=== PATIENT | male | born 1980 | race Caucasian/White ===

== ENCOUNTER 2024-06-27 17:20 | Inpatient (IN) | payer BC ==
[2024-06-27] VITALS (10 sets, daily range): BP systolic 130–147; BP diastolic 65–88
[~2024-06-27] VITALS: Ht 182.9 cm; Wt 110.0 kg
[2024-06-27] MEDS ORDERED: HYDROmorphone HCL 2 MG/AMP IV ONE (17:35)
[2024-06-27 18:00] LABS: BASO% 0.1 % (0-3); EOS% 0.3 % (0-8); HEMATOCRIT 40.2 % (39.0-50.0); HEMOGLOBIN 13.3 g/dl (14.0-18.0); IMMATURE GRANULOCYTES 0.3 % (0.0-5.0); MEAN CORPUSCULAR HGB 29.1 pG CALC (26.0-32.0); MEAN CORPUSCULAR HGB CONC 33.1 g/dL CAL (32.0-36.0); MONO% 8.1 % (2-13); NEUT# 10.68 thou/uL (1.82-7.42); NEUT% 85.2 % (42-76); RED BLOOD COUNT 4.57 mill/uL (4.70-6.10); RED CELL DISTRI WIDTH 12.8 % (11.5-15.5)
[2024-06-27 18:10] LABS: ALBUMIN 3.7 g/dL (3.2-5.0); BILIRUBIN, TOTAL 1.6 mg/dL (0.2-1.3); POTASSIUM 3.7 mmol/l (3.5-5.1); TOTAL PROTEIN 6.8 g/dL (6.3-8.2)
--- NOTE | 2024-06-27 18:26 | NUR ---
PT MEDICATED PER EMAR FOR PAIN. PT EDUCATED ON NEED FOR URINE SAMPLE. URINAL PLACED AT BEDSIDE. CALL LIGHT IN REACH.
[2024-06-27] MEDS ORDERED: SODIUM CHLORIDE 0.9% 1,000 ML IV ONE (18:40)
[2024-06-27] MEDS ORDERED: ACETAMINOPHEN 1,000 MG/100 ML VIAL IV ONE (18:40)
--- NOTE | 2024-06-27 19:24 | NUR ---
TEMPERATURE REASSED. PATIENT MEETS CRITERIA FOR SEPSIS. HR 114, TEMP 101. WBC COUNT 12.5. X RAY EQUIPMENT MECHANIC NOTIFIED. BLOOD CULTURES ORDERED. ANTIBITOICS HUNG AT THIS TIME BUT NOT INFUSIONG. LAB NOTIFIED OF NEED FOR BLOOD CULTURES.
[2024-06-27] MEDS ORDERED: PIPERACILLIN Sodium-Tazobactam 4.5 GM in SODIUM CHLORIDE 0.9% 100 ML IV ONE (19:30)
--- NOTE | 2024-06-27 20:25 | NUR ---
OR TEAM AT BEDSIDE.
--- NOTE | 2024-06-27 20:30 | NUR ---
PATIENT TRASNPORTED TO OR AT THIS TIME.
[2024-06-27] MEDS ORDERED: LACTATED RINGER'S 1,000 ML IV ONE (20:37)
[2024-06-27] MEDS ORDERED: LIDOcaine HCl 1% (Local Anesth.) 20 ML VIAL ONE (20:43)
[2024-06-27] MEDS ORDERED: SODIUM CHLORIDE 0.9% 10 ML SYR ONE (20:43)
[2024-06-27] MEDS ORDERED: STERILE WATER FOR IRRIGATION 500 ML BTL IR ONE (20:43)
[2024-06-27] MEDS ORDERED: SODIUM CHLORIDE 1,000 ML BTL IR ONE (20:43)
[2024-06-27] MEDS ORDERED: FAMOTIDINE 10MG/ML 2ML SDV IV ONE (20:53)
[2024-06-27] MEDS ORDERED: SODIUM CHLORIDE 0.9% 1,000 ML IV PRN (21:35)
[2024-06-27] MEDS ORDERED: HYDROmorphone HCL 2 MG/AMP IV PRN (21:35)
--- NOTE | 2024-06-27 23:15 | NUR ---
PT ARRIVED TO MED-SURG FLOOR AROUND 2205 HRS VIA STRETCHER ACCOMPANIED BY HIS FAMILY MEMBERS. ASSESSMENT AND ADMISSION COMPLETED AT THIS TIME. PT STATES HE CAME IN TO ER DUE TO UNRELIEVED ABDOMINAL PAIN DURING THE LAST 2 DAYS PT ALSO STATES HE WAS TAKING TYLENOL BUT THE PAIN IT DID NOT GO AWAY. PT WAS LET KNOWN THAT WE NEED TO MEASURE HIS URINE AND HE WILL BE NPO FOR THE REST OF THE NIGHT. PT DENIES ANY PAIN AT THIS TIME HE JUST SAID THAT HE FEELS THAT HIS ANDOMEN IS BLOATED. RESPS ARE EVEN AND UNLABORED. NO DSITRESS NOTED. ABDOMEN IS DISTENDED AND SOFT WITH ACTIVE BOWEL SOUNDS. DENIES ANY TENDERNESS. STRONG PERIPHERAL PULSES TO TOUCH. SKIN IS WARM, DRY AND INTACT. ORIENTED TO ROOM, CALL LIGHT AND SURROUNDS. INSTRUCTED TO CALL FOR ASSISTACE NEEDED. CALL LIGHT IS WITHIN REACH AND SAFETY PRECAUTIONS IN PLACE.
[2024-06-28] VITALS (7 sets, daily range): BP systolic 110–163; BP diastolic 59–102
[2024-06-28] MEDS ORDERED: KETOROLAC TROMETHAMINE 15 MG/ML SDV IV SCH
--- NOTE | 2024-06-28 | NUR ---
PATEINT ADMITTED FOR DIVERTICULITIS WITH PERFORATION OF THE INTESTINE. PATIENT IS ALERT AND ORIENTEDX3 UPON ARRIVAL TO THE UNIT AND STATES THAT HIS PAIN IS UNDER CONTROL AT TH AT TIME. PATIENT IS NPO. DENIES ANY NAUSEA AT THIS TIME. STATES THAT HIS LAST BM WAS FRIDAY MORNING AND WAS NORMAL. DENIES ANY DIFFICUTY WITH URINATION AND URINE SPEC OBTAINED AND SENT TO LAB. URINE WAS ORANGE-PATIENT DID TAKE AZO AT HOME BEFORE COMING TO THE ER-STATES THAT MAYBE HE HAD A UTI. IV SITE TO LAC INTACT WITH IVF PATENT AND INFUSING AT 150CC/HR. SITE IS HEALTHY AT THIS TIME. FAMILY AT BEDSIDE. ORIENTED TO ROOM AND SURROUNDINGS. INSTRUCTED ON USE OF NURSE CALL LIGHT SYSTEM AND TV REMOTE. TEDS WERE PLACED BLE. CALL LIGHT IN REACH. WILL CONT TO MONITOR.
[2024-06-28 00:57] LABS: URINE BLOOD DIPSTICK Trace-lysed (NEGATIVE); URINE COLOR Orange; URINE GLUCOSE - DIPSTICK 100 mg/dL (NEGATIVE); URINE KETONE 15 mg/dL (NEGATIVE); URINE LEUK ESTERASE Negative (NEGATIVE); URINE NITRITE - DIPSTICK Positive (Negative); URINE PH 5.5 (4.5-8.0); URINE PROTEIN - DIPSTICK 100 mg/dL (NEG-TRACE); URINE SPECIFIC GRAVITY 1.015
[2024-06-28 00:58] LABS: URINE WBC 0-2 WBC/hpf (0-5)
[2024-06-28 00:59] LABS: URINE BACTERIA FEW hpf; URINE EPITHELIAL CELLS FEW EPI/hpf (0-FEW)
--- NOTE | 2024-06-28 03:06 | NUR ---
PT REQUESTED PAIN MEDICATION AT THIS TIME. DILAUDID WAS PULLED OUT OF THE PYXIS BUT WHEN I PULLED OUT THE MEDICATION I PULLED THE 2 GM OUT BY ACCIDENT IN THE WASTE CONTAINER.
--- NOTE | 2024-06-28 04:02 | NUR ---
PT RESTING IN SUPINE POSITION STATES THAT HE DOES NOT HAVE ANY PAIN RIGHT NOW. IVF NS PATENT AND INFUSING VIA RAC AT 150 CC ORDERED. CALL LIGHT IS WITHIN REACH AND SAFETY PRECAUTIONS IN PLACE.
[2024-06-28 05:36] LABS: BASO% 0.2 % (0-3); HEMATOCRIT 35.6 % (39.0-50.0); HEMOGLOBIN 12.1 g/dl (14.0-18.0); IMMATURE GRANULOCYTES 0.2 % (0.0-5.0); LYMPH% 6.7 % (15-41); MEAN CELL VOLUME 87.7 fL CALC (80.0-100.0); MEAN CORPUSCULAR HGB 29.8 pG CALC (26.0-32.0); MONO% 9.8 % (2-13); NEUT# 8.64 thou/uL (1.82-7.42); NEUT% 82.1 % (42-76); RED BLOOD COUNT 4.06 mill/uL (4.70-6.10)
[2024-06-28 05:38] LABS: ALBUMIN 3.1 g/dL (3.2-5.0); BILIRUBIN, TOTAL 1.6 mg/dL (0.2-1.3); CREATININE 0.9 mg/dL (0.7-1.3); POTASSIUM 3.6 mmol/l (3.5-5.1); TOTAL PROTEIN 5.9 g/dL (6.3-8.2)
[2024-06-28] MEDS ORDERED: PIPERACILLIN Sodium-Tazobactam 3.375 GM in SODIUM CHLORIDE 0.9% 100 ML IV SCH ×2 (06:00→12:00)
[2024-06-28] MEDS ORDERED: Pantoprazole Sodium 40 MG VIAL (Protonix) IV SCH (09:00)
--- NOTE | 2024-06-28 09:07 | NUR ---
SHIFT CHANGE REPORT, PT AWAKE ALERT AND ORIENTED RESTING IN BED, C/O ABD PAIN AND SRY MOUTH AND TONGUE AND HAS NOT EATEN SINCE FRIDAY AM, IVF INFUSING CALL MERINO IN REACH AND BED LOCKED IN LOWEST POSITION
--- NOTE | 2024-06-28 10:00 | NUR ---
DR ISIDRO ROUNDED, DISCUSSED PLAN OF CARE WITH PT AND WROTE ORDERS.
--- NOTE | 2024-06-28 12:00 | NUR ---
STABLE CONDITION, PAIN CONTROLLED, ATE LIQUID MEAL AND TOLERATED WELL
--- NOTE | 2024-06-28 14:54 | NUR ---
RECIEVED REPORT FROM SUZI MENDIETA.
--- NOTE | 2024-06-28 14:55 | NUR ---
PT IS LAYING IN BED AWAKE. CALL LIGHT IN HAND.
--- NOTE | 2024-06-28 16:07 | NUR ---
SPOKE WITH DR. ISIDRO ABOUT PT'S HIGH BLOOD PRESSURE AND PAIN MEDICATION. SEE NEW ORDER
[2024-06-28] MEDS ORDERED: ACETAMINOPHEN 325 MG/TAB PO PRN (16:25)
--- NOTE | 2024-06-28 19:30 | NUR ---
PATIENT SITTING UP IN BED WITH AT BEDSIDE. PATIENT IS AWAKE ALERT AND ORIENTEDX3. TEMPS IS DOWN TO 99.0 AT THIS TIME. PATIENT IS TAKING SOME PO CLEAR FLUID AND TOLERATING WELL AT THIS TIME. PATIENT STATES THAT HE IS PASSING SOME GAS BUT NO BM TODAY. VOIDING QS RUMA URINE IN URINAL AT BEDSIDE. IVF NS PATENT AND INFUSING VIA LAC SITE AT 150CC/HR. SITE IS HEALTHY WITH GOOD BLOOD RETURN WHEN FLUSHED. PATIENT PROVIDED WITH SUPPLIES FOR SHOWER AND WILL ASSIST. LINENS WILL BE CHANGED WHEN HE IS IN THE SHOWER. SAFETY PRECAUTIONS REINFORCED. WILL CONT TO MONITOR.
--- NOTE | 2024-06-28 20:30 | NUR ---
PATIENT RESTING IN BED AT THIS TIME. STATES THAT HE DID HAVE SMALL LOOSE STOOL WHEN IN THE BR. IVF PATENT AND INFUSING AT 150CC/HR. SITE REMAINS HEALTHY AT THIS TIME. CALL LIGHT IN REACH. WILL CONT TO MONITOR.
[2024-06-29] VITALS (13 sets, daily range): BP systolic 127–148; BP diastolic 83–95
--- NOTE | 2024-06-29 00:34 | NUR ---
PATIENT RESTING IN BED WITH IVF PATENT AND INFUSING VIA LAC SITE AT 150CC/HR. TEMP AT THIS TIME IS 98.8.HR REMAINS ELEVATED OVER 100. MEDICATED WITH ZOSYN AND TORADOL ORDERED. NO NAUSEA OR VOMITTING AT THIS TIME. CALL LIGHT IN REACH. WILL CONT TO MONITOR.
--- NOTE | 2024-06-29 05:00 | NUR ---
PT RESTING IN BED WITH EYES CLOSED. RESPS ARE EVEN AND UNLABORED. IVF NS INFUIRNG AT 100 MLS/HR AT THIS MOMENT. CALL LIGHT IS IN REACH AND SAFETY PRECAUTIONS IN PLACE.
--- NOTE | 2024-06-29 07:10 | NUR ---
PT LAYING IN BED AWAKE WATCHING TV, PT IS A&O X3, PUPILS PERRL, RESP. EVEN AND UNLABORED, LUNG SOUNDS ARE CLEAR, ABD DISTENDED AND SOFT WITH HYPOACTIVE BOWEL SOUNDS, PT COMPLAINS OF PAIN WITH MOVEMENT IN LUQ & LLQ, PT DENIES ANY NEED FOR PAIN MEDICATION AT THIS TIME, STRONG RADIAL AND PEDAL PULSES, 20G LAC IV WITH FLUIDS INFUSING AT PRESCRIBED RATE, SAFETY MEASURES REINFORCED, CALL MERINO WITHIN REACH
[2024-06-29] MEDS ORDERED: DIATRIZOATE MEGLUMINE & SODIUM 30 ML/BTL PO SCH (08:45)
--- NOTE | 2024-06-29 12:00 | NUR ---
PT SITTING UP IN THE BED WATCHING TV, FAMILY AT BEDSIDE, PT DENIES ANY NEEDS AT THIS TIME, PT REMINDED TO CALL FOR ASSISTANCE, CALL MERINO WITHIN REACH
[2024-06-29] MEDS ORDERED: STERILE WATER FOR IRRIGATION 1,000 ML BTL IR ONE (12:33)
[2024-06-29] MEDS ORDERED: SODIUM CHLORIDE 1,000 ML BTL IR ONE ×2 (12:33→16:44)
--- NOTE | 2024-06-29 12:45 | NUR ---
PT TAKEN TO OR VIA BED
[2024-06-29] MEDS ORDERED: SODIUM CHLORIDE 0.9% 10 ML SYR ONE ×2 (12:58→16:53)
[2024-06-29] MEDS ORDERED: LACTATED RINGER'S 1,000 ML IV ONE ×2 (13:01→16:44)
[2024-06-29] MEDS ORDERED: FAMOTIDINE 10MG/ML 2ML SDV IV ONE (13:01)
[2024-06-29] MEDS ORDERED: ONDANSETRON HCl 4 MG/2 ML SDV IV PRN (16:25)
[2024-06-29] MEDS ORDERED: BENZOCAINE-MENTHOL (MOUTH-THRO 1 LOZ LOZ MT PRN (16:25)
[2024-06-29] MEDS ORDERED: HYDROmorphone HCL 2 MG/AMP ONE (16:39)
[2024-06-29] MEDS ORDERED: SODIUM CHLORIDE 0.9% 1,000 ML IV ONE (17:27)
[2024-06-29] MEDS ORDERED: SODIUM CHLORIDE 0.9% 1,000 ML IV PRN (17:30)
--- NOTE | 2024-06-29 17:30 | NUR ---
PT ARRIVED BACK TO THE UNIT VIA BED ACCOMPANIED BY OR NURSES, BEDSIDE REPORT GIVEN, PT A&O X3, VERBALIZED PAIN OF A 6 OUT OF 10, MEDICATION GIVEN, ABD DRESSING CD&I WITH J P DRAINS IN PLACE, NG TUBE CONNECTED TO LI SUCTION, O2 AT 2L VIA NC, BARTHOLOMEW CATH IN PLACE WITH CLEAR YELLOW URINE DRAINING, PT VERBALIZED EXTREME DISCOMFORT COMING FROM THE BARTHOLOMEW, BARTHOLOMEW CATH REMOVED PER PATIENT REQUEST, PUREWICK IN PLACE, AT BEDSIDE, SAFETY MEASURES REINFORCED, CALL MERINO WITHIN REACH
[2024-06-29] MEDS ORDERED: SUCCINYLCHOLINE CHLORIDE 20 MG/ML 10ML VIAL IV ONE (17:36)
[2024-06-29] MEDS ORDERED: PROPOFOL 200 MG/20 ML VIAL IV ONE (17:36)
[2024-06-29] MEDS ORDERED: SUGAMMADEX SODIUM 200 MG/2 ML SDV IV ONE (17:36)
[2024-06-29] MEDS ORDERED: ONDANSETRON HCl 4 MG/2 ML SDV IV ONE (17:36)
[2024-06-29] MEDS ORDERED: KETOROLAC TROMETHAMINE 30 MG/ML SDV IV ONE (17:36)
[2024-06-29] MEDS ORDERED: METOPROLOL TARTRATE 5 MG/5 ML VIAL IV ONE (17:36)
[2024-06-29] MEDS ORDERED: LACTATED RINGER'S 1,000 ML BAG IV ONE (17:36)
[2024-06-29] MEDS ORDERED: MIDAZOLAM HCL 2 MG/2 ML VIAL IV ONE (17:36)
[2024-06-29] MEDS ORDERED: ePHEDrine SULFATE 50 MG/ML AMP IV ONE (17:36)
[2024-06-29] MEDS ORDERED: ROCURONIUM BROMIDE 10 MG/ML 5ML VIAL IV ONE (17:36)
[2024-06-29] MEDS ORDERED: ACETAMINOPHEN 1,000 MG/100 ML VIAL IV ONE (17:36)
[2024-06-29] MEDS ORDERED: LIDOCAINE HCL 2% 2ML SDV IV ONE (17:36)
--- NOTE | 2024-06-29 20:00 | NUR ---
PATIENT SITTING UP IN BED AT THIS TIME WITH AT BEDSIDE. PATIENT IS ALERT AND [id number]. PATIENT WITH NGT IN PLACE TO LIWS WITH SCANT DRAINAGE AT THIS TIME. ABD IS DISTENED BUT SOFT WITH HYPOACTIVE BS. ABD DRESSING IS CDI-3 WARD DRAINS INTACT. DRAIN #1 AND #3 DRAINING SMALL AMT OF SEROSANGUINOUSW FLUID. #2 WITH NO DRAINAGE AT THIS TIME. OSTOMY APPLIANCE IN PLACE TO RIGHT ABD WITH SCANT AMT OF BLOODY FLUID IN BAG. IVF NS PATENT AND INFUSING AT 150CC/HR. SURESH SCD'S IN PLACE. NO PERIPHERAL EDEMA NOTED. PULSES ARE PALPABLE. PATIENT REMAINS NPO. INSTRUCTED ON USE OF IS Q1H WHILE AWAKE IN REPS OF 10.BARTHOLOMEW CATH WAS REMOVED PER REPORT BY DAYSHIFT NURSE DUE TO SOME PAIN IN HIS PENIS. PUREWICK IN PLACE AT THIS TIME-NO URINE AT THIS TIME. PATIENT & INSTRUCTED REGUARDING INCREASING ACTIVITY TOLERATED TO PREVENT ANY POST-OP COMPLICATIONS INCLUDING PULM COMPLICATIONS, DVT'S ECT. PATIENT IS BEING MEDICATED FOR POST-OP PAIN WITH DILAUDID ORDERED WITH GOOD EFFECT.NO NAUSEA AT TIME. CALL LIGHT IN REACH, WILL CONT TO MONITOR.
--- NOTE | 2024-06-29 23:00 | NUR ---
PT ASSISTED TO RECLINER AT THIS TIME. PT STATES HE FEELS PAIN EACH TIME HE SWALLOWS EXPLAINED TO PT THAT IS DUE TO THE NG TUBE. OFFER TO PT NITIN GUILLEN FOR THROAT IRRITATION BUT PT REFUSED. PT REQUESTED PAIN MEDICATION FOR HIS ABDOMEN REPORTING PAIN 8/10 ON PAINSCALE- MEDICATED WITH DILAUDID 1 MG VIA IV. WILL CONTINUE TO MONITOR. BED BLANKETS CHANGED WELL. DRESSING REMAINS INTACT. CALL LIGHT IS WITHIN REACH AND SAFETY PRECAUTIONS IN PLACE.
[2024-06-30] VITALS (12 sets, daily range): BP systolic 123–168; BP diastolic 79–109
--- NOTE | 2024-06-30 00:18 | NUR ---
PT SSISTED TO BED AT THIS MOMENT. BREATHING IS EVEN AND UNLABORED. ZOZYN INFUSING VIA LAC AT 200 MLS/HR. SCD'S ON PLACE ORDERED. #1JP DRAIN EMPTIED WITH 60 MLS. PUREWICK WITH 150 CC WITH ORANGE URINE. CALL LIGHT IS WITHIN REACH AND SAFETY PRECAUTIONS IN PLACE.
--- NOTE | 2024-06-30 04:25 | NUR ---
PATIENT RESTING IN BED WITH EYES CLOSED. BREATHING IS EVEN AND UNLABORED WITH O2 IN PLACE ORDERED. NG TUBE TO LEFT NARE INTACT. SCD'S IN PLACE ORDERED. URINAL AT BEDSIDE. CALL LIGHT WITHIN REACH AND SAFETY PRECAUTIONS IN PLACE.
[2024-06-30 05:11] LABS: BASO% 0.1 % (0-3); EOS% 0.3 % (0-8); HEMATOCRIT 38.8 % (39.0-50.0); HEMOGLOBIN 12.8 g/dl (14.0-18.0); IMMATURE GRANULOCYTES 0.3 % (0.0-5.0); LYMPH% 11.4 % (15-41); MEAN CELL VOLUME 88.8 fL CALC (80.0-100.0); MEAN CORPUSCULAR HGB 29.3 pG CALC (26.0-32.0); MONO% 11.3 % (2-13); NEUT# 8.51 thou/uL (1.82-7.42); NEUT% 76.6 % (42-76); RED BLOOD COUNT 4.37 mill/uL (4.70-6.10); RED CELL DISTRI WIDTH 12.6 % (11.5-15.5)
[2024-06-30 05:17] LABS: ALBUMIN 2.9 g/dL (3.2-5.0); BILIRUBIN, TOTAL 1.5 mg/dL (0.2-1.3); POTASSIUM 3.7 mmol/l (3.5-5.1); TOTAL PROTEIN 5.7 g/dL (6.3-8.2)
--- NOTE | 2024-06-30 06:31 | NUR ---
PATIENT RESTING IN BED AT THIS TIME-O2 VIA NASAL CANNULA IN PLACE. TEMPS AT THIS TIME IS 101.1, HR UP TO 119. WILL BE MEDICATED WITH TYLENOL PO ORDERED. TOTAL WARD#1 OUTPUT FOR THIS SHIFT IS 125CC OF SERSANGUINOUS FLUID. #2 WITH NO OUTPUT THIS SHIFT. #3 IS TOTAL OUTPUT OF 70CC OF SEROSANGUINOUS FLUID. ENCOURAGED USE OF IS Q1H INSTRUCTED. TOTAL NGT OUTPUT FOR THE SHIFT IS 50CC OF CLEAR BROWNISH/GREEN FLUID. IVF CONT TO INFUSE VIA LAC SITE AT 150CC/HR. ZOSYN ORDERED AND DILAUDID FOR PAIN. NO NAUSEA. STILL NPO. CALL LIGHT IN REACH. WILL CONT TO MONITOR.
--- NOTE | 2024-06-30 07:25 | NUR ---
PT LAYING IN BED RESTING WITH EYES CLOSED, AROUSES EASILY TO VERBAL STIMULI, PUPILS PERRL, RESP. EVEN AND UNLABORED, LUNG SOUNDS ARE CLEAR, ABD DISTENDED AND SOFT WITH HYPOACTIVE BOWEL SOUNDS, ABD DRESSING REMAINS IN PLACE AND IS CD&I, 3 WARD DRAINS ARE IN PLACE AND DRAINING, NGT IN PLACE AND DRAINING, COLOSTOMY HAS A SCANT AMOUNT OF BLOOD IN BAD, 20G LAC IV WITH FLUIDS INFUSING AT PRESCRIBED RATE, NORMAL S1 S2 HEART SOUNDS, SAFETY MEASURES REINOFRCED, CALL MERINO WITHIN REACH
--- NOTE | 2024-06-30 12:00 | NUR ---
PT SITTING UP IN THE RECLINER TALKING TO FAMILY WHO ARE AT BEDSIDE, NO S/S OF DISTRESS AT THIS TIME, CALL MERINO WITHIN REACH
--- NOTE | 2024-06-30 15:00 | NUR ---
PT AMBULATING IN THE AVILES WITH A STRONG STEADY GAIT, PT TOLERATED WELL, PT ASSISTED BACK TO THE BED AFTER AMBULATION, SAFETY MEASURES REINFORCED, CALL MERINO WITHIN REACH
--- NOTE | 2024-06-30 17:00 | NUR ---
DRESSING CHANGED, MINIMAL DRAINAGE ON DRESSING, NEW DRESSING APPLIED, WARD DRAINS EMPTIED, JP1 50CC, JP2 25CC, JP3 20CC, COLOSTOMY EMPTIED 75CC, PT TOLERATED DRESSING CHANGE WELL, CALL MERINO WITHIN REACH
--- NOTE | 2024-06-30 20:15 | NUR ---
PATIENT OBSERVED TO BE RESTING IN BED. FAMILY AT BEDSIDE. A&O X4. PATIENT COMPLAINS OF PAIN OF A 10. GAVE PRN DILAUDID PER EMAR ORDERS. BEDSIDE ASSESSMENT COMPLETE. EQUAL UNLABORED RESP. ABDOMEN OBSERVED TO HAVE COLOSTOMY. NO OUTPUT OBSERVED. [address] WITH RIGHT WARD TO HAVE LIGHT RED OUTPUT. LEFT 2 PINKISH OUTPUT. BED AT LOWEST POSITION. CALL LIGHT WITH IN REACH.
[2024-07-01] VITALS (9 sets, daily range): BP systolic 157–168; BP diastolic 82–107
--- NOTE | 2024-07-01 00:18 | NUR ---
PATIENT OBSERVED TO BE RESTING IN BED WITH EYES CLOSED. PATIENT RESPONDS TO VERBAL STIMILI. PATIENT STATES PAIN LEVEL OF A 3. WILL REFER TO EMAR. WARD DRAINS SMALL AMOUNT OF OUTPUT OBSERVED, DARK PINK. BED AT LOWEST POSITION. CALL LIGHT WITH IN REACH.
--- NOTE | 2024-07-01 04:48 | NUR ---
PATIENT OBSERVED TO BE RESTING IN BED WITH EYES CLOSED. UNLABORED RESP. NO VISUAL SIGNS OF DISTRESS. BED AT LOWEST POSITION. CALL LIGHT WITH IN REACH.
--- NOTE | 2024-07-01 06:39 | NUR ---
nurse robby made aware of pt bp of 167/107 @0620
--- NOTE | 2024-07-01 07:20 | NUR ---
PT LAYING IN BED AWAKE WATCHING TV, PT IS A&O X3, PUPILS PERRL, RESP. EVEN AND UNLABORED, LUNG SOUNDS ARE CLEAR, ABD DISTENDED AND SOFT WITH HYPOACTIVE BOWEL SOUNDS, DRESSING REMAINS IN PLACE AND IS CD&I, [address] AND DRAINING, COLOSTOMY IN PLACE WITH MINIMAL DRAINAGE, STRONG RADIAL AND PEDAL PULSES, 20G LAC IV WITH IV FLUIDS INFUSING AT PRESCRIBED, PT MEDICATED FOR PAIN OF A 6 OUT OF 10, SCDs REMOVED AT THIS TIME PER PT REQUEST, SAFETY MEASURES REINFORCED, CALL MERINO WITHIN REACH
[2024-07-01 09:00] LABS: BASO% 0.2 % (0-3); EOS% 3.4 % (0-8); HEMATOCRIT 36.5 % (39.0-50.0); IMMATURE GRANULOCYTES 0.4 % (0.0-5.0); LYMPH% 15.1 % (15-41); MEAN CELL VOLUME 88.6 fL CALC (80.0-100.0); MEAN CORPUSCULAR HGB 29.1 pG CALC (26.0-32.0); MEAN CORPUSCULAR HGB CONC 32.9 g/dL CAL (32.0-36.0); MONO% 10.6 % (2-13); NEUT# 6.39 thou/uL (1.82-7.42); NEUT% 70.3 % (42-76); RED BLOOD COUNT 4.12 mill/uL (4.70-6.10); RED CELL DISTRI WIDTH 12.8 % (11.5-15.5)
[2024-07-01 09:39] LABS: CREATININE 0.9 mg/dL (0.7-1.3); POTASSIUM 3.6 mmol/l (3.5-5.1)
--- NOTE | 2024-07-01 11:00 | NUR ---
PROVIDER AT BEDSIDE DISCUSSING PLAN OF CARE, PROVIDER AWARE OF ELEVATED BP, PT ASSISTED OUT OF THE BED, PT AMBULATED TO THE RESTROOM AND TO THE RECLINER WITH A SLOW STEADY GAIT, PT HAD SMALL BM THROUGH RECTUM, PT SAFETY MEASURES REINFORCED, CALL MERINO WITHIN REACH
--- NOTE | 2024-07-01 16:00 | NUR ---
PT AMBULATING IN THE AVILES WITH NURSE, PT AMBULATED FROM ROOM TO NURSE'S STATION TO THE END OF THE 70S AVILES AND TO THE ICU HALLWAY, PT TOLERATED WELL, PT ASSISTED BACK TO BED, PAIN MEDS GIVEN PER PT REQUEST, WARD DRAINS EMPTIED, JP1 100, JP2 10, JP3 20, DRESSING CHANGE TO BE DONE AFTER MEDICATION "KICKS IN" PER PT, SAFETY MEASURES REINFORCED, CALL MERINO WITHIN REACH
--- NOTE | 2024-07-01 19:49 | NUR ---
PATIENT IN ROOM RESTING IN BED WATCHING TV. PATIENT IS A&O X4. PATIENT CAN MAKE NEEDS KNOWN. NONE NEEDED AT THIS TIME. BEDSIDE ASSESSMENT COMPLETE. IVF INFUSEING. IV SITE CLEAR. ABDOMEN DRESSING CLEAN AND INTACT. [address] WITH PINK DRAINAGE. COLOSTOMY BAG IN PLACE RED STOMA OBSERVED. NO OUT PUT. BED AT LOWEST POSITION. CALL LIGHT WITH IN REACH.
[2024-07-02] VITALS (8 sets, daily range): BP systolic 129–168; BP diastolic 60–98
--- NOTE | 2024-07-02 00:30 | NUR ---
PATIENT IN ROOM RESTING IN BWED WITH EYES CLOSED. PATIENT RESPONDS TO VERBAL STIMULI. PATIENT IS IN PAIN OF A 4. WILL REFER TO EMAR. UNLABORED RESP. BED AT LOWEST POSITION. CALL LIGHT WITH IN REACH
--- NOTE | 2024-07-02 04:50 | NUR ---
PATIENT OBSERVED TO BE RESTING IN BED WITH EYES CLOSED. PATIETN RESPONDS TO VERBAL STIMULI. WARD DRAIN #1 EMPTIED 50CC. WARD #3 50CC EMPTIED. PINKISH YELLOW DRAINAGE OBSERVED. UNLABORED RESP. NO VISUAL SIGNS OF DISTRESS. BED AT LOWEST POSITION. CALL LIGHT WITH IN REACH.
--- NOTE | 2024-07-02 07:30 | NUR ---
REORT RECIEVED. PT A/OX4. ASSESSMENT COMPLETED. RR UNLABORED ON ROOM AIR. DRESSING TO ABD CDI. WARD DRAIN X3 NOTED. #20 LAC INFUSING WITH IVF PER ORDER. PT REPORTS 2/10 ABD PAIN, REFUSES ANY MEDS AT THIS TIME. PT DENIES OF ANY NEEDS AT THIS TIME. SAFETY PRECAUTIONS IN PLACE WITH CALL LIGHT IN REACH.
[2024-07-02] MEDS ORDERED: oxyCODONE 5MG/ ACETAMINOPHEN 325MG TAB PO PRN (08:00)
--- NOTE | 2024-07-02 08:00 | NUR ---
DR. ISIDRO AT BEDSIDE. DICUSSED POC. PT VERBALIZED UNDERSTANDING
[2024-07-02] MEDS ORDERED: SODIUM CHLORIDE 0.9% 1,000 ML IV SCH (08:30)
--- NOTE | 2024-07-02 11:25 | NUR ---
PT EDUCATED ON COLOSTOMY BAG AND HOW TO EMPTY. TO CME AND VISIT, TO EDUCATE AND PT ON CHANGING. 150 OF LIQUID STOOL EMPTIED FROM OSTOMY. WARD #2 REMOVD, PT TOLERATED WELL. IVF AND BAIRON INFUSING. PT DENIES OF ANY NEEDS. SAFETY PRECAUTIONS IN PLACE WITH CALL LIGHT IN REACH.
--- NOTE | 2024-07-02 15:45 | NUR ---
PT RESTING IN SEMI FOWLERS POSIITON. RR UNLABORED. OSTOMY BAG CHANGED AT THIS TIME DUE TO LEAKING. DRESSING TO ABD CHANGED AGAIN. PT TOOLERATED WELL. WARD DRAIN X2 EMPTIED. MEDICATION FOR PAIN. PT DENIES OF ANY ADDITIONAL NEEDS. SAFETY PRECAUTIONS IN PLACE WITH CALL LIGHT IN REACH.
[2024-07-02] MEDS ORDERED: DiphenhydrAMINE HCL 50 MG/ML SDV IV PRN (16:45)
--- NOTE | 2024-07-02 20:10 | NUR ---
PATIENT OBSERVED IN ROOM RESTING IN BED WITH EYES CLOSED. BED SIDE ASSESSMENT COMPLETE. UNLABORED RESP NO COMPLAINTS OF PAIN AT THIS TIME. PATIENT OBSERVED TO HAVE DRESSING ON LOWER ABDOMEN, CLEAN AND INTACT. 2 WARD DRAINS OBSERVED. COLOSTOMY BAG WITH NO OUTPUT. BED AT LOWEST POSITION. CALL LIGHT WITH IN RREACH.
--- NOTE | 2024-07-03 00:33 | NUR ---
PATIENT OBSERVED TO BE RESTING IN BED WITH EYES CLOSED. PATIENT RESPONDS TO VERBAL STIMULI. PATIENT REPORTS OF PAIN LEVEL 5. DILADID GIVEN 0.5 PER EMAR ORDERS. BED AT LOWEST POSITION. CALL LIGHT WITH IN REACH.
--- NOTE | 2024-07-03 04:22 | NUR ---
PATIENT IN ROOM RESTING IN BED WITH EYES CLOSED. PATIET HAS EQUAL UNLABORED RESP. NO VISUAL SIGNS OF DISTRESS. BED AT LOWEST POSITION. CALL LIGHT WITH IN REACH.
[2024-07-03 04:24] VITALS: BP 134/92
[2024-07-03 06:50] VITALS: BP 172/106
[2024-07-03 07:23] VITALS: BP 172/106
--- NOTE | 2024-07-03 08:03 | NUR ---
PT IS ALERT TIMES 4. PT IS S/P DAY 5 OF POST SURGERY. PT IV SITE IS CLEAN AND DRY AND SO S/O INFECTION AT THIS TIME. PT REMAINS ON A FULL LIQUID DIET AT ORDERED BY MD. PT BODY ASSESSMENT DONE SKIN IS INTACT. SURGICAL SITE TO THE ABDOMEN IS CLEAN AND DRY NO DRAINAGE ON THE DRESSING NOTED AT THIS TIME. BOTH #1 AND # 3 WARD DRAINS AND DRAINING WELL. PT HAS NO C/O PAIN AT TIME. PT CALL MERINO AT HIS REACH. ALL SAFETY MEASURES IN PLACE. NURSING WILL CONTINUE TO MONITOR.
[2024-07-03] MEDS ORDERED: LABETALOL HCL 100 MG/TAB PO SCH (13:00)
[2024-07-03 15:18] VITALS: BP 155/99
--- NOTE | 2024-07-03 16:02 | NUR ---
PT IS ALERT AND CAN MAKE HIS NEEDS KNOWN. PT FAMILY IS AT BEDSIDE. PT WAS EDUCATED ON THE CARE OF HIS OSTOMY SITE AND HOW TO CARE FOR THE STOMA AND CAHNGE THE BAG. PT WARD DAVIS # 3 WAS REMOVED ON THIS SHIFT. PT SITE IS CLEAN AND DRY AND NEW DRESSING IN PLACE OF SURGERY SITE. PT PAIN MANAGEMENT IN PROGRESS WITH POSITIVE EFFECT. PT CALL MERINO IS WITHIN REACH. NURSING WILL CONTINUE TO MONITOR.
[2024-07-03 16:33] VITALS: BP 155/99
--- NOTE | 2024-07-03 17:56 | NUR ---
PT IS ALERT TIMES 4. PT IS AT BEDSIDE. PT IV NS 0.9% HAS BEEN D/C BY SURGEON. PT IV ZOSYN INFUSING WELL. PT C/O PAIN TO HIS ABDMEN MEDICATION GIVEN AT ORDERED WITH POSITIVE EFFECT. PT IS SITTING IN HIS RECLINER IN HIS ROOM RESTING. PT CALL MERINO IS AT REACH ALL SAFETY MEASURES IN PLACE.
[2024-07-03 18:40] VITALS: BP 149/92
--- NOTE | 2024-07-03 20:00 | NUR ---
PATIENT SITTING UP ON THE RECLINER WITH TO THE SIDE. ALERT AND OREINTED X3. REPOSRT JUST MILD PAIN TO HIS ABDOMEN. RESPS ARE EVEN AND UNLABORED. NO DISTRESS NOTED. ABDOMEN IS DISTENDET AND SOFT WITH ACTIVE BOWEL SOUNDS. DRESSING TO ABDOMEN IS INTACT, DRY AND CLEAN WITHOUT ANY DRAINAGE. COLOSTOMY WAS EMPTIED WITH SMALL AMOUNT OF BROWN, LOOSE STOOL. WARD DRAIN #3 EMPTIED WITH 40 MLS OF SEROSANGUINEOUS DRAINAGE. PATIENT STATES HE IS PASSING GASES NOW. PT'S WAS IN PT'S ROOM AND EDUCATED ON HOW TO EMPTY THE COLOSTOMY. STRONG PERIPHERAL PULSES TO TOUCH. PT'S IV SITE TO LAC INTACT AND CLEAN- NO SWELLING AND FLUSHING WELL. CALL LIGHT IS IN REACH AND SAFETY PRECAUTIONS IN PLACE.
--- NOTE | 2024-07-04 00:06 | NUR ---
PATIENT RESTING IN BED REQUESTING PAIN MEDICATION- MEDICATED WITH OXYCODONE 5 MG PO. ZOZYN INFUSING AT THIS TIME VIA LAC ORDERED. CALL LIGHT IS IN REACH AND SAFETY PRECAUTIONS IN PLACE. WILL CONTINUE TO MONITOR
[2024-07-04 00:19] VITALS: BP 143/93
--- NOTE | 2024-07-04 04:00 | NUR ---
PATIENT RESTING IN BED WITH EYES CLOSED AND SUPINE POSITION. RESPS ARE EVEN AND UNALBORED. CALL LIGHT IN REACH AND SAFETY PRECAUTIONS IN PLACE,
[2024-07-04 04:37] VITALS: BP 147/92
[2024-07-04 05:40] LABS: BASO% 0.3 % (0-3); HEMATOCRIT 36.3 % (39.0-50.0); HEMOGLOBIN 12.1 g/dl (14.0-18.0); IMMATURE GRANULOCYTES 0.9 % (0.0-5.0); LYMPH% 28.3 % (15-41); MEAN CELL VOLUME 86.8 fL CALC (80.0-100.0); MEAN CORPUSCULAR HGB 28.9 pG CALC (26.0-32.0); MEAN CORPUSCULAR HGB CONC 33.3 g/dL CAL (32.0-36.0); MONO% 7.9 % (2-13); NEUT# 4.42 thou/uL (1.82-7.42); NEUT% 58.6 % (42-76); RED BLOOD COUNT 4.18 mill/uL (4.70-6.10); RED CELL DISTRI WIDTH 12.3 % (11.5-15.5)
[2024-07-04 05:48] LABS: POTASSIUM 3.5 mmol/l (3.5-5.1)
[2024-07-04 06:05] VITALS: BP 156/92
--- NOTE | 2024-07-04 07:12 | NUR ---
SHIFT CHANGE REPORT, PT SLEEPING IN SUPINE POSITION, BREATHING EVEN AND NON-LABORED, NO SIGN DISCOMFORT, CALL MERINO IN REACH AND BED LOCKED IN LOWEST POSITION.
--- NOTE | 2024-07-04 09:00 | NUR ---
DR ISIDRO ROUNDED AND DISCUSSED PLAN OF CARE WITH PT, GAVE VERBAL AND WRITTEN ORDERS TO BE EXECUTED. COLOATOMY APARATUS REMOVED DUE TO LEAKAGE AND NEW APARATUS PLACED, PT OBSERVED WHILE GIVEN TEACHING ON CARE OF OSTOMY. WARD DRAIN TO LEFT ABD REMOVED AND PRESSURE DRESSING APPLIED, BANDAID APPLIED TO SMALL PUNCTURE AT RIGHT OF MIDLINE INCISION. INCISION APPROXIMATED WITH [address], AREA CLEANED AND DRY DRESSING PLACED OVER INCISION THEN SECURED WITH PAPER TAPE.
[2024-07-04] MEDS ORDERED: PERCOCET 5/325M1 TAB PO (09:53)
[2024-07-04] MEDS ORDERED: AMOX/K CLAV875 M1 PO (09:54)
[2024-07-04] MEDS ORDERED: NORMODYNE/TRAN100 MG PO (09:54)
--- NOTE | 2024-07-04 12:52 | NUR ---
Discharge instructions given. Patient verbalizes understanding of same. Discharged in stable condition via Wheelchair to Home with spouse. All belongings sent with pt.
== END 2024-07-04 12:40 | disposition home or self-care (01) | DRG 329 ==
LOC: ED 17:20 → ED-I 17:53 → ED 17:53 → ED-I 19:49 → MS2 20:54
PROVIDERS: Family Medicine; ADMIT Surgery; ATTEND Surgery
PROC: 0DBN0ZZ Excision of Sigmoid Colon, Open Approach (ICD-10-PCS; principal; 2024-06-29)
PROC: 0D1H0Z4 Bypass Cecum to Cutaneous, Open Approach (ICD-10-PCS; 2024-06-29)
DX: K57.20 Diverticulitis of large intestine with perforation and abscess without bleeding (principal); K65.1 Peritoneal abscess; I10 Essential (primary) hypertension
CPT/HCPCS: J0131; J1171; J1200; J1885; J2405; J2470; J2543; Q9967

== ENCOUNTER 2024-07-27 18:40 | Inpatient (IN) | payer BC ==
[~2024-07-27] VITALS: Ht 180.3 cm; Wt 106.6 kg
[~2024-07-27 18:40] MED LIST: AMOX/K CLAV875 M1 PO; NORMODYNE/TRAN100 MG PO; PERCOCET 5/325M1 TAB PO; TRIAM/NYSTAT EX
[2024-07-28] MEDS ORDERED: PRILOSEC OTC20 MG PO (08:20)
[2024-07-29] VITALS (8 sets, daily range): BP systolic 116–132; BP diastolic 70–79
[2024-07-29] MEDS ORDERED: SODIUM CHLORIDE 0.9% 100 ML IV ONE (10:24)
[2024-07-29] MEDS ORDERED: ceFAZolin Sodium 2 GM/VIAL SDV ONE (10:24)
[2024-07-29] MEDS ORDERED: FAMOTIDINE 10MG/ML 2ML SDV IV ONE (10:24)
[2024-07-29] MEDS ORDERED: LACTATED RINGER'S 1,000 ML IV ONE (10:24)
[2024-07-29] MEDS ORDERED: LIDOcaine HCl 1% (Local Anesth.) 20 ML VIAL ONE (10:56)
[2024-07-29] MEDS ORDERED: LIDOCAINE HCL 1% (10MG/ML) 100 MG/10 ML MDV ONE (10:57)
[2024-07-29] MEDS ORDERED: SODIUM CHLORIDE 1,000 ML BTL IR ONE (13:54)
[2024-07-29] MEDS ORDERED: STERILE WATER FOR IRRIGATION 500 ML BTL IR ONE (13:54)
[2024-07-29] MEDS ORDERED: SODIUM CHLORIDE 0.9% 1,000 ML IV PRN (13:55)
[2024-07-29] MEDS ORDERED: HYDROmorphone HCL 2 MG/AMP IV PRN (13:55)
[2024-07-29] MEDS ORDERED: ONDANSETRON HCl 4 MG/2 ML SDV IV PRN (13:55)
[2024-07-29] MEDS ORDERED: SIMETHICONE 20 MG/0.3 ML PO PRN ×2 (13:55→15:10)
[2024-07-29] MEDS ORDERED: HYDROmorphone HCL 2 MG/AMP ONE (14:33)
--- NOTE | 2024-07-29 15:02 | NUR ---
PATIENT ARRIVED TO [facility] UNIT VIA STRETCHER FROM THE OR. PATIENT A&OX4. BREATHING UNLABORED ON ROOM AIR. IV IN LEFT HAND INFUSING FLUIDS PER EMAR;SITE CLEAN AND INTACT. AT BEDSIDE. BED SIDE REPORT GIVEN. PT DRESSING SITE C/D/I. SCD'S APPLIED TO BLE. ASSESSMENT COMPLETED. PT STATES TO HAVE SOME PAIN RATED AT A 6;PT PREVIOUSLY MEDICATED PRIOR TO ARRIVAL TO UNIT. PERSONAL ITEMS PUT AWAY. PT EDUCATED ON DIET WELL CALL LIGHT USE;PT VERBALIZED UNDERSTANDING. NO OTHER NEEDS AT THIS TIME. PT ENCOURAGED TO AMBULATE WHEN READY AND TOLERATED. ICE CHIPS WELL MOUTH MOISTURIZER PROVIDED PER PT REQUEST. BED IN LOWEST POSITION. POC ONGOING.
--- NOTE | 2024-07-29 15:03 | NUR ---
BARTHOLOMEW NOTED WELL UPON ASSESSMENT, NO KINKS OR KNOTS NOTED.
[2024-07-29] MEDS ORDERED: SUCCINYLCHOLINE CHLORIDE 20 MG/ML 10ML VIAL IV ONE (16:33)
[2024-07-29] MEDS ORDERED: MIDAZOLAM HCL 2 MG/2 ML VIAL IV ONE (16:33)
[2024-07-29] MEDS ORDERED: KETOROLAC TROMETHAMINE 30 MG/ML SDV IV ONE (16:33)
[2024-07-29] MEDS ORDERED: ACETAMINOPHEN 1,000 MG/100 ML VIAL IV ONE (16:33)
[2024-07-29] MEDS ORDERED: SUGAMMADEX SODIUM 200 MG/2 ML SDV IV ONE (16:33)
[2024-07-29] MEDS ORDERED: GLYCOPYRROLATE 0.2 MG/ML IV ONE (16:33)
[2024-07-29] MEDS ORDERED: ROCURONIUM BROMIDE 10 MG/ML 5 ML VIAL IV ONE (16:33)
[2024-07-29] MEDS ORDERED: MORPHINE SULFATE 4 MG/ML VIAL IV ONE (16:33)
[2024-07-29] MEDS ORDERED: LIDOCAINE HCL 2% 2ML SDV IV ONE (16:33)
[2024-07-29] MEDS ORDERED: PROPOFOL 200 MG/20 ML VIAL IV ONE (16:33)
[2024-07-29] MEDS ORDERED: SODIUM CHLORIDE 0.9% 1,000 ML BAG IV ONE (16:33)
[2024-07-29] MEDS ORDERED: PIPERACILLIN Sodium-Tazobactam 3.375 GM in SODIUM CHLORIDE 0.9% 100 ML IV SCH (18:00)
[2024-07-29] MEDS ORDERED: KETOROLAC TROMETHAMINE 15 MG/ML SDV IV SCH (20:00)
--- NOTE | 2024-07-29 20:00 | NUR ---
PATIENT LYING IN BED RESTING. AT BEDSIDE. ASSESSMENT COMPLETED. PATIENT ALERT AND ORIENTED X 4. C/O PAIN OF A 3, DECLINES PAIN RELIEF MEASURES AT THIS TIME. LUNGS CLEAR TO ASCULTATION. BREATHING EVEN AND UNLABORED ON ROOM AIR. STRONG PERIPHERAL/PEDAL PULSES. ABDOMINAL DRESSING CLEAN, DRY AND INTACT. PATIENT ADVISED OF DRESSING CHANGE SCHEDULE, VERBALIZED UNDERSTANDING. SAFETY MEASURES IN PLACE INCLUDING BED LOCKED AND IN LOW POSITION. CALL LIGHT RESTING NEXT TO R HAND. WILL CONTINUE WITH PLAN OF CARE.
--- NOTE | 2024-07-29 20:05 | NUR ---
PATIENT DECLINED SCDs/TEDs STATING HE DOEES NOT "LIKE THEY WAY THEY FEEL". PATIENT EDUCATED ON THE IMPORTANCE OF DVT PREENTION, VERBALIZED UNDERSTANDING, HOWEVER CONTINUED TO DECLINE.
[2024-07-29] MEDS ORDERED: LABETALOL HCL 100 MG/TAB PO SCH (21:00)
--- NOTE | 2024-07-29 21:00 | NUR ---
DRESSING CHANGE COMPLETE. FLUFF GAUZE, 1 ABDOMINAL PAD, AND 1 LARGE TEGADERM REMOVED. 1 ROLL OF FLUFF GAUZE, 4-4X4 GAUZE, 2 ABDOMINAL PADS APPLIED AND SECURED WITH PAPER TAPE. NEXT DRESSING CHANGE 07/30/24 AT 0900.
--- NOTE | 2024-07-29 21:10 | NUR ---
BARTHOLOMEW REMOVED PER VERBAL ORDER RECEIVED FROM DR. ISIDRO. PATIENT TOLERATED REMOVAL WELL.
--- NOTE | 2024-07-30 00:19 | NUR ---
PATIENT LYING IN BED WATCHING TV. C/O ABD PAIN OFA 7, WILL MEDICATE ACCORDING TO EMAR. DENIES ADDITIONAL CONCERNS AT THIS TIME. ALL NEEDS MET. WILL CONTINUE WITH PLAN OF CARE.
[2024-07-30 05:18] VITALS: BP 135/86
[2024-07-30 05:40] LABS: BASO% 0.1 % (0-3); HEMATOCRIT 36.4 % (39.0-50.0); HEMOGLOBIN 12.5 g/dl (14.0-18.0); IMMATURE GRANULOCYTES 0.1 % (0.0-5.0); LYMPH% 12.3 % (15-41); MEAN CELL VOLUME 86.1 fL CALC (80.0-100.0); MEAN CORPUSCULAR HGB 29.6 pG CALC (26.0-32.0); MEAN CORPUSCULAR HGB CONC 34.3 g/dL CAL (32.0-36.0); MONO% 3.9 % (2-13); NEUT# 5.93 thou/uL (1.82-7.42); NEUT% 83.6 % (42-76); RED BLOOD COUNT 4.23 mill/uL (4.70-6.10)
[2024-07-30 05:55] LABS: BILIRUBIN, TOTAL 1.1 mg/dL (0.2-1.3); CREATININE 0.8 mg/dL (0.7-1.3); POTASSIUM 4.1 mmol/l (3.5-5.1)
[2024-07-30 06:01] LABS: ALBUMIN 4.2 g/dL (3.2-5.0); TOTAL PROTEIN 7.2 g/dL (6.3-8.2)
[2024-07-30 06:54] VITALS: BP 111/70
--- NOTE | 2024-07-30 07:35 | NUR ---
PATENT LYING AWAKE IN BED WATCHING TV. BREATHING UNLABORED ON ROOM AIR. IV IN LEFT HAND INFUSING FLUIDS PER EMAR;SITE CLEAN AND INTACT. PT DENIES ANY PAIN OR N/D/V AT THIS TIME. ENCOURAGED PT TO GET UP AND SIT IN THE CHAIR;PT STATED "NOT NOW MAYBE LATER". PT ASKING FOR HIS DIET TO BE ADVANCE;INFORMED PT THAT IS UP TO PROVIDER. NO OTHER NEEDS AT THIS TIME. ICE CHIPS ALREADY PROVIDED AND AT BEDSIDE. PERSONAL ITEMS NEAR WELL CALL LIGHT. BED IN LOWEST POSITION. POC ONGOING.
[2024-07-30] MEDS ORDERED: PANTOPRAZOLE SODIUM Sesquihydr 40 MG/TAB PO SCH (09:00)
[2024-07-30] MEDS ORDERED: oxyCODONE 5MG/ ACETAMINOPHEN 325MG TAB PO PRN (11:10)
--- NOTE | 2024-07-30 12:15 | NUR ---
PATIENT SITTING UP IN BED EATING LUNCH (CLEAR LIQUIDS). BREATHING UNLABORED ON ROOM AIR. IV IN LEFT HAND INFUSING FLUIDS PER EMAR;SITE CLEAN AND INTACT. PT DENIES ANY PAIN OR N/D/V AT THIS TIME. FAMILY AT BEDSIDE. PT STATES TO WANT MORE THAN CLEAR LIQUID DUE TO HIM 'STARVING'. INFORMED PT THAT THE DR ONLY ALLOWED HIM TO HAVE CLEAR LIQUIDS ONLY. PT VERBALIZED UNDERSTANDING. NO OTHER NEEDS AT THIS TIME. PT ENCOURAGED TO GET OUT OF BED; PT STATES HE WILL LATER. POC ONGOING. CALL LIGHT WITHIN REACH.
[2024-07-30 15:47] VITALS: BP 116/65
[2024-07-30 16:03] VITALS: BP 127/40
--- NOTE | 2024-07-30 16:56 | NUR ---
PATIENT SITTING UP IN RECLINER WATCHING TV. BREATHING UNLABORED ON 2L NC. PT DENIES ANY PAIN OR N/D/V AT THIS TIME. PERSONAL ITEMS WELL CALL LIGHT WITHIN REACH. URINAL AND BSC NEAR. NO NEEDS AT THIS TIME.
--- NOTE | 2024-07-30 17:04 | NUR ---
PATIENT SITTING UP IN RECLINER. FAMILY AT BEDSIDE. BREATHING UNLABORED ON ROOM AIR. IV INFUSING FLUIDS PER EMAR;SITE CLEAN AND INTACT. PT DENIES ANY PAIN AT THE MOMENT. PT STILL REQUESTING FOR MORE TO EAT. REINFORMED PT OF HIS SPECIFIC DIET. PT VERBALIZED UNDERSTANDING. PERSONAL ITEMS WELL CALL LIGHT WITHIN REACH. POC ONGOING.
[2024-07-30 18:43] VITALS: BP 112/32
--- NOTE | 2024-07-30 20:00 | NUR ---
PATIENT SITTING UP IN CHAIR. FAMILY AT BEDSIDE. PATIENT ALERT AND ORIENTED X 4. C/O PAIN OF A 4, WILL MEDICATE ACCORDING TO EMAR. LUNGS CLEAR TO ASCULTATION. BREATHING EVEN AND UNLABORED ON ROOM AIR. STRONG PERIPHERAL/PEDAL PULSES. ABDOMINAL DRESSING CLEAN, DRY AND INTACT. SAFETY MEASURES IN PLACE INCLUDING CHAIR LOCKED AND CALL LIGHT RESTING NEXT TO R ARM. NO APPARENT DISTRESS. WILL CONTINUE WITH PLAN OF CARE.
--- NOTE | 2024-07-30 23:29 | NUR ---
PATIENT LYING IN BED RESTING WITH EYES CLOSED. RISE AND FALL OF CHEST NOTED. NO APPARENT DISTRESS. WILL CONTINUE WITH PLAN OF CARE.
--- NOTE | 2024-07-31 04:05 | NUR ---
LAB AT BEDSIDE FOR MORNING DRAW. PATIENT RESTING WITH EYES CLOSED. NO APPARENT DISTRESS NOTED. WILL CONTINUE WITH PLAN OF CARE.
[2024-07-31 04:21] VITALS: BP 130/82
[2024-07-31 06:29] VITALS: BP 146/86
[2024-07-31 07:39] VITALS: BP 146/86
[2024-07-31] MEDS ORDERED: HYDROcodone 5 MG/Acetaminophen 325 MG/COMBO PO PRN (07:40)
[2024-07-31 08:08] LABS: HEMATOCRIT 34.5 % (39.0-50.0); HEMOGLOBIN 11.4 g/dl (14.0-18.0); MEAN CORPUSCULAR HGB 29.1 pG CALC (26.0-32.0); RED BLOOD COUNT 3.92 mill/uL (4.70-6.10); RED CELL DISTRI WIDTH 13.6 % (11.5-15.5)
--- NOTE | 2024-07-31 08:25 | NUR ---
PT IS FOUND TO BE RESTING IN BED. PT IS IN SOME PAIN. THIS RN MEDICATED HIM WITH TORADOL PER SCHEDULED. PT IS REQUESTING LORTAB; WILL ADMINISTER. PT IS A&O X4, STABLE; ROOM AIR. PT CAN MOVE ALL EXTREMITES; GENERALIZED WEAKNESS- SBA OOB. PLAN OF CARE WAS REVIEWED WITH THE PATIENT; NO FURTHER QUESTIONS AT THIS TIME. CALL LIGHT IS WITHIN REACH.
[2024-07-31 08:35] LABS: ALBUMIN 3.9 g/dL (3.2-5.0); BILIRUBIN, TOTAL 0.8 mg/dL (0.2-1.3); CREATININE 0.8 mg/dL (0.7-1.3); TOTAL PROTEIN 6.7 g/dL (6.3-8.2)
--- NOTE | 2024-07-31 12:00 | NUR ---
PT'S CONDITION REMAINS THE SAME. PT IS GOING FOR WALKS WITH FAMILY. CALL LIGHT IS WITHIN REACH.
--- NOTE | 2024-07-31 13:37 | NUR ---
PT GOING FOR A WALK; PREMEDICATED. PAIN SCALE 7-8/10. FAMILY AT BEDSIDE.
[2024-07-31] MEDS ORDERED: LORTAB 5/3255 MG PO (16:59)
--- NOTE | 2024-07-31 18:26 | NUR ---
Discharge instructions given. Patient verbalizes understanding of same. Discharged in stable condition via Wheelchair to Home with spouse. All belongings sent with pt. DISCHARGE INSTRUCTIONS WERE REVIEWED; NO FURTHER QUESTIONS AT THIS TIME. WOUND CARAE DEMONSTRATION WAS COMPLETED. YASH IS OUT AND NO TELE.
== END 2024-07-31 18:21 | disposition home or self-care (01) | DRG 331 ==
LOC: OR 07-29 10:05 → MS2 07-29 10:09 → OR 07-29 10:45 → MS2 07-29 13:57
PROVIDERS: ADMIT Surgery; ATTEND Surgery
PROC: 0DBH0ZZ Excision of Cecum, Open Approach (ICD-10-PCS; principal; 2024-07-29)
DX: Z43.3 Encounter for attention to colostomy (principal); I10 Essential (primary) hypertension; Z90.49 Acquired absence of other specified parts of digestive tract; Z87.19 Personal history of other diseases of the digestive system
CPT/HCPCS: J0131; J0690; J1100; J1171; J1596; J1885; J2543